=== PATIENT | male | born 2000 | race Two or more races ===

== ENCOUNTER 2022-09-01 02:15 | Inpatient (IN) | payer MEDICAID ==
[~2022-09-01] VITALS: Ht 193 cm; Wt 147.7 kg
[2022-09-01 03:33] LABS: Urine Bacteria NONE SEEN /hpf (None Seen); Urine Blood 2+ /uL (Negative); Urine Hyaline Cast FEW /lpf (0 - 2); Urine Mucus FEW (None Seen); Urine Specific Gravity 1.031 (1.001-1.035); Urine WBC 4 /hpf (0 - 3)
[2022-09-01 03:44] LABS: Basophils # (auto) 0.1 10 ^3/uL (0-0.2); Basophils % (auto) 0.7 % (0.0-2.0); Eosinophils # (auto) 0.3 10 ^3/uL (0-0.8); Eosinophils % (auto) 2.1 % (0.0-7.0); Hematocrit 44.9 % (41.0-53.0); Hemoglobin 14.7 g/dL (13.5-17.5); Lymphocytes # (auto) 3.9 10 ^3/uL (0.4-5.4); Lymphocytes % (auto) 30.7 % (10.0-50.0); Mean Corpuscular Hemoglobin 27.2 pg (28.0-32.0); Mean Corpuscular Hgb Conc. 32.9 g/dL (32.0-36.0); Mean Corpuscular Volume 82.7 fL (80.0-100.0); Monocytes % (auto) 7.8 % (0.0-12.0); Neutrophils # (auto) 7.5 10 ^3/uL (1.6-8.6); Neutrophils % (auto) 58.7 % (37.0-80.0); Red Blood Cells 5.43 10^6/uL (4.5-5.90); Red Cell Distribution Width 14.4 % (11.8-14.3); White Blood Cell 12.8 10^3/uL (4.4-10.8)
[2022-09-01 04:02] LABS: Albumin 3.5 g/dL (3.4-5.0); BUN/Creatinine Ratio 15.2; Calcium 8.6 mg/dL (8.5-10.1); Potassium 4.3 mmol/L (3.5-5.1)
[2022-09-01 04:05] LABS: Bilirubin, Total 1.5 mg/dL (0.2-1.0); Total Protein 7.4 g/dL (6.4-8.2)
[2022-09-01] MEDS ORDERED: KETOROLAC TROMETH 30 MG/ML 1ML VIAL IV ONE (04:45)
[2022-09-01] MEDS ORDERED: FAMOTIDINE (10MG/ML) 2ML VL IV ONE (04:45)
[2022-09-01] MEDS ORDERED: ONDANSETRON HCL 4 MG/2 ML VIAL IV ONE (05:15)
[2022-09-01] MEDS ORDERED: SODIUM CHLORIDE 0.9% 2,000 ML IV ONE (06:00)
[2022-09-01] MEDS ORDERED: metroNIDAZOLE 500MG/100ML 100 ML IV ONE (06:00)
[2022-09-01] MEDS ORDERED: cefTRIAXone 1GM/50ML D5W 50 ML IV ONE (06:00)
[2022-09-01] MEDS ORDERED: MORPHINE SULFATE INJ 2 MG/ml SYRG IV PRN (09:30)
[2022-09-01] MEDS ORDERED: ONDANSETRON HCL 4 MG/2 ML VIAL IV PRN (09:30)
[2022-09-01] MEDS ORDERED: HYDROcodone-ACET 5/325MG TAB PO PRN (09:30)
[2022-09-01] MEDS ORDERED: ACETAMINOPHEN 325 MG TAB PO PRN (09:30)
[2022-09-01 10:29] LABS: Amphetamine Screen, Urine NEGATIVE (NEGATIVE); Barbiturate Scree,Urine NEGATIVE (NEGATIVE); Benzodiazephine Screen, Urine NEGATIVE (NEGATIVE); Cannabinoid Screen, Urine NEGATIVE (NEGATIVE); Cocaine Screen, Urine NEGATIVE (NEGATIVE); Opiate Scree,Urine NEGATIVE (NEGATIVE); Phencyclidine Screen, Urine NEGATIVE (NEGATIVE)
[2022-09-01] MEDS: SODIUM CHLORIDE 0.9% 1,000 ML IV SCH ×2 (11:38→18:30)
[2022-09-01] MEDS: metroNIDAZOLE 500MG/100ML 100 ML IV SCH ×2 (14:00→23:05)
[2022-09-02] MEDS: SODIUM CHLORIDE 0.9% 1,000 ML IV SCH ×2 (02:15→10:50)
[2022-09-02] MEDS: metroNIDAZOLE 500MG/100ML 100 ML IV SCH (05:58)
[2022-09-02 07:04] LABS: Basophils # (auto) 0.1 10 ^3/uL (0-0.2); Basophils % (auto) 0.8 % (0.0-2.0); Eosinophils # (auto) 0.2 10 ^3/uL (0-0.8); Eosinophils % (auto) 2.1 % (0.0-7.0); Hematocrit 43.9 % (41.0-53.0); Hemoglobin 15.1 g/dL (13.5-17.5); Lymphocytes # (auto) 2.6 10 ^3/uL (0.4-5.4); Lymphocytes % (auto) 33.5 % (10.0-50.0); Mean Corpuscular Hemoglobin 28.7 pg (28.0-32.0); Mean Corpuscular Hgb Conc. 34.3 g/dL (32.0-36.0); Mean Corpuscular Volume 83.8 fL (80.0-100.0); Monocytes # (auto) 0.6 10 ^3/uL (0-1.3); Monocytes % (auto) 7.3 % (0.0-12.0); Neutrophils # (auto) 4.4 10 ^3/uL (1.6-8.6); Neutrophils % (auto) 56.3 % (37.0-80.0); Nucleated Red Blood Cells % 0.1 %; Red Blood Cells 5.24 10^6/uL (4.5-5.90); Red Cell Distribution Width 14.2 % (11.8-14.3); White Blood Cell 7.8 10^3/uL (4.4-10.8)
[2022-09-02 07:22] LABS: INR 1.07 (0.9-1.15); Partial Thromboplastin Time 32.2 sec (24.6-33.4)
[2022-09-02 13:50] VITALS: BP 116/74
== END 2022-09-02 15:00 | disposition home or self-care (01) ==
LOC: ER 02:17 → CENTRAL 08:08 → OVERFLOW 09:31 → CENTRAL 09-02 08:11
PROVIDERS: ADMIT Registered Nurse; ATTEND Student in an Organized Health Care Education/Training Program
DX: K80.10 Calculus of gallbladder with chronic cholecystitis without obstruction (principal); K76.0 Fatty (change of) liver, not elsewhere classified; E66.01 Morbid (severe) obesity due to excess calories; R73.03 Prediabetes; R31.9 Hematuria, unspecified; Z68.39 Body mass index [BMI] 39.0-39.9, adult; Z20.822 Contact with and (suspected) exposure to COVID-19; K82.8 Other specified diseases of gallbladder
CPT/HCPCS: 36415; 71045; 74177; 76705; 78226; 80053; 80307; 81001; 82150; 83036; 83690; 85025; 85610; 85730; 87426; 93005; 96365; 96375; G0378; J0696; J1885; J2405; J3490

== ENCOUNTER 2022-12-29 03:58 | Inpatient (IN) | payer MEDICAID ==
[~2022-12-29] VITALS: Ht 188 cm; Wt 151.0 kg
[2022-12-29 04:17] LABS: Basophils # (auto) 0.1 10 ^3/uL (0-0.2); Basophils % (auto) 0.4 % (0.0-2.0); Eosinophils # (auto) 0.3 10 ^3/uL (0-0.8); Eosinophils % (auto) 2.2 % (0.0-7.0); Hematocrit 45.5 % (41.0-53.0); Hemoglobin 15.5 g/dL (13.5-17.5); Lymphocytes # (auto) 3.4 10 ^3/uL (0.4-5.4); Lymphocytes % (auto) 29.3 % (10.0-50.0); Mean Corpuscular Hemoglobin 28.7 pg (28.0-32.0); Mean Corpuscular Hgb Conc. 33.9 g/dL (32.0-36.0); Mean Corpuscular Volume 84.7 fL (80.0-100.0); Monocytes % (auto) 8.5 % (0.0-12.0); Neutrophils % (auto) 59.6 % (37.0-80.0); Nucleated Red Blood Cells % 0.1 %; Red Blood Cells 5.38 10^6/uL (4.5-5.90); Red Cell Distribution Width 14.2 % (11.8-14.3); White Blood Cell 11.8 10^3/uL (4.4-10.8)
[2022-12-29 04:34] LABS: Albumin 3.6 g/dL (3.4-5.0); BUN/Creatinine Ratio 17.3; Calcium 9.1 mg/dL (8.5-10.1); Potassium 4.3 mmol/L (3.5-5.1)
[2022-12-29 04:37] LABS: Bilirubin, Total 1.3 mg/dL (0.2-1.0); Total Protein 7.6 g/dL (6.4-8.2)
[2022-12-29] MEDS ORDERED: ONDANSETRON ODT 4 MG TAB PO ONE (05:15)
[2022-12-29] MEDS ORDERED: MORPHINE SULFATE 4 MG/ML SYR/VIAL IV ONE (06:30)
[2022-12-29] MEDS ORDERED: SODIUM CHLORIDE 0.9% 1,000 ML IVB ONE (06:30)
[2022-12-29] MEDS ORDERED: PANTOPRAZOLE 40 MG/10 ML VIAL INJ IV ONE ×2 (06:30→09:30)
[2022-12-29] MEDS ORDERED: ONDANSETRON HCL 4 MG/2 ML VIAL IV ONE (06:30)
[2022-12-29 06:59] LABS: Urine Bacteria NONE SEEN /hpf (None Seen); Urine Blood 2+ /uL (Negative); Urine Specific Gravity 1.025 (1.001-1.035); Urine WBC <1 /hpf (0 - 3)
[2022-12-29 08:52] LABS: INR 1.03 (0.9-1.15)
[2022-12-29 09:03] LABS: Cholesterol 87 mg/dL (< 200); HDL Cholesterol 28 mg/dL (40-59); LDL Cholesterol 52 mg/dL (< 100); Triglycerides 141 mg/dL (< 150)
[2022-12-29] MEDS ORDERED: MORPHINE SULFATE INJ 2 MG/ml SYRG IV PRN (09:15)
[2022-12-29] MEDS ORDERED: ONDANSETRON HCL 4 MG/2 ML VIAL IV PRN (09:15)
[2022-12-29] MEDS: SODIUM CHLORIDE 0.9% 1,000 ML IV SCH ×2 (09:22→13:18)
[2022-12-29] MEDS ORDERED: KETOROLAC TROMETH 30 MG/ML 1ML VIAL IV ONE (09:30)
[2022-12-29 10:01] LABS: INR 1.03 (0.9-1.15)
[2022-12-29 18:40] VITALS: BP 143/105
[2022-12-29 19:07] LABS: Urine Bacteria NONE SEEN /hpf (None Seen); Urine Blood TRACE /uL (Negative); Urine Hyaline Cast FEW /lpf (0 - 2); Urine Mucus FEW (None Seen); Urine WBC 1 /hpf (0 - 3)
[2022-12-30 05:00] VITALS: BP 94/49
[2022-12-30 06:29] LABS: Basophils # (auto) 0 10 ^3/uL (0-0.2); Basophils % (auto) 0.5 % (0.0-2.0); Eosinophils # (auto) 0.2 10 ^3/uL (0-0.8); Eosinophils % (auto) 2.4 % (0.0-7.0); Hematocrit 42.3 % (41.0-53.0); Hemoglobin 14.5 g/dL (13.5-17.5); Lymphocytes # (auto) 2.6 10 ^3/uL (0.4-5.4); Mean Corpuscular Hemoglobin 29.2 pg (28.0-32.0); Mean Corpuscular Hgb Conc. 34.3 g/dL (32.0-36.0); Monocytes # (auto) 0.6 10 ^3/uL (0-1.3); Monocytes % (auto) 8.6 % (0.0-12.0); Neutrophils % (auto) 53.5 % (37.0-80.0); Nucleated Red Blood Cells % 0.1 %; Red Blood Cells 4.97 10^6/uL (4.5-5.90); Red Cell Distribution Width 14.3 % (11.8-14.3); White Blood Cell 7.4 10^3/uL (4.4-10.8)
[2022-12-30 06:45] LABS: Albumin 3.4 g/dL (3.4-5.0); BUN/Creatinine Ratio 14.4; Calcium 8.8 mg/dL (8.5-10.1)
[2022-12-30 06:47] LABS: Bilirubin, Total 2.3 mg/dL (0.2-1.0); Total Protein 6.9 g/dL (6.4-8.2)
[2022-12-30 08:34] VITALS: BP 105/63
[2022-12-30] MEDS: PANTOPRAZOLE 40 MG/10 ML VIAL INJ IV SCH (10:51)
[2022-12-30] MEDS: SODIUM CHLORIDE 0.9% 1,000 ML IV SCH (10:51)
[2022-12-30 13:00] VITALS: BP 101/61
[2022-12-30] MEDS ORDERED: cefTRIAXone 1GM/50ML D5W 50 ML IV ONE (13:00)
[2022-12-30] MEDS: metroNIDAZOLE 500MG/100ML 100 ML IV SCH ×2 (14:40→22:15)
[2022-12-30 17:00] VITALS: BP 128/72
[2022-12-30 22:00] VITALS: BP 120/73
[2022-12-31] MEDS: SODIUM CHLORIDE 0.9% 1,000 ML IV SCH ×2 (04:09→18:27)
[2022-12-31 05:00] VITALS: BP 117/70
[2022-12-31] MEDS: metroNIDAZOLE 500MG/100ML 100 ML IV SCH ×3 (05:43→22:13)
[2022-12-31 08:46] VITALS: BP 115/66
[2022-12-31] MEDS: cefTRIAXone 1GM/50ML D5W 50 ML IV SCH (09:38)
[2022-12-31] MEDS: PANTOPRAZOLE 40 MG/10 ML VIAL INJ IV SCH (09:39)
[2022-12-31 12:40] VITALS: BP 106/64
[2022-12-31 16:40] VITALS: BP 117/68
[2022-12-31 22:45] VITALS: BP 104/60
[2023-01-01 05:00] VITALS: BP 104/58
[2023-01-01] MEDS: metroNIDAZOLE 500MG/100ML 100 ML IV SCH ×3 (05:30→21:13)
[2023-01-01] MEDS: SODIUM CHLORIDE 0.9% 1,000 ML IV SCH ×2 (08:45→23:03)
[2023-01-01 09:00] VITALS: BP 110/70
[2023-01-01] MEDS: cefTRIAXone 1GM/50ML D5W 50 ML IV SCH (09:35)
[2023-01-01] MEDS: PANTOPRAZOLE 40 MG/10 ML VIAL INJ IV SCH (09:35)
[2023-01-01 17:00] VITALS: BP 107/61
[2023-01-01 22:00] VITALS: BP 125/70
[2023-01-02] MEDS: metroNIDAZOLE 500MG/100ML 100 ML IV SCH ×2 (06:28→14:10)
[2023-01-02 09:26] VITALS: BP 122/67
[2023-01-02] MEDS: cefTRIAXone 1GM/50ML D5W 50 ML IV SCH (09:28)
[2023-01-02] MEDS: PANTOPRAZOLE 40 MG/10 ML VIAL INJ IV SCH (09:29)
[2023-01-02] MEDS: SODIUM CHLORIDE 0.9% 1,000 ML IV SCH (09:44)
[2023-01-02 12:42] VITALS: BP 119/76
[2023-01-02] MEDS ORDERED: LEVO750T8 PO (12:46)
[2023-01-02] MEDS ORDERED: METR500T PO (12:46)
[2023-01-02] MEDS ORDERED: HYDR-4902 PO (12:46)
[2023-01-02 16:44] VITALS: BP 137/84
== END 2023-01-02 17:30 | disposition home or self-care (01) ==
LOC: ER 03:58 → OVERFLOW 09:08 → WEST WING 18:31
PROVIDERS: ADMIT Nurse Practitioner Family; ATTEND Family Medicine
DX: K80.00 Calculus of gallbladder with acute cholecystitis without obstruction (principal); E66.01 Morbid (severe) obesity due to excess calories; E86.0 Dehydration; Z68.41 Body mass index [BMI] 40.0-44.9, adult; Z20.822 Contact with and (suspected) exposure to COVID-19; Z82.49 Family history of ischemic heart disease and other diseases of the circulatory system; Z83.3 Family history of diabetes mellitus
CPT/HCPCS: 36415; 71045; 76705; 78226; 80053; 80061; 81001; 83036; 83690; 84443; 85025; 85610; 86850; 86900; 86901; 87426; 96374; 96375; C9113; G0378; J0696; J2405; J3490; Q0162

== ENCOUNTER 2023-12-31 17:03 | Emergency (ER) | payer MEDICAID ==
[~2023-12-31] VITALS: Ht 188 cm; Wt 140.0 kg
[~2023-12-31 17:03] MED LIST: HYDR-4902 PO; LEVO750T8 PO; METR500T PO
[2023-12-31] MEDS ORDERED: IBUP-1455 PO (17:34)
[2023-12-31] MEDS ORDERED: METH-1182 PO (17:34)
[2023-12-31] MEDS: KETOROLAC TROMETH 60MG/2ML VIAL IM ONE (17:42)
[2023-12-31 18:11] VITALS: BP 159/80; PULSE 70; RESP 16; TEMP 97.9; O2SAT 99
== END 2023-12-31 18:10 | disposition home or self-care (01) ==
LOC: EDBD 17:03 → ER 17:03
DX: M54.41 Lumbago with sciatica, right side (principal)
CPT/HCPCS: 96372; 99283; J1885